=== PATIENT | male | born 1975 | race Hispanic/Latino ===

== ENCOUNTER 2019-05-21 20:16 | Emergency (ER) | payer OTHER ==
[2019-05-21] MEDS ORDERED: IBUPROFEN 600 MG TABLET ONE (20:38)
== END 2019-05-21 21:05 | disposition home or self-care (01) ==
LOC: EDH 20:16
DX: S16.1XXA Strain of muscle, fascia and tendon at neck level, initial encounter (principal); Z87.891 Personal history of nicotine dependence; X58.XXXA Exposure to other specified factors, initial encounter; Y93.89 Activity, other specified; Y92.89 Other specified places as the place of occurrence of the external cause; Y99.8 Other external cause status